=== PATIENT | male | born 1985 | race African-American/Black ===

== ENCOUNTER 2017-03-01 14:04 | Emergency (ER) | payer OTHER ==
[~2017-03-01] VITALS: Ht 182.9 cm; Wt 95.5 kg
[2017-03-01 15:32] VITALS: BP 127/71
== END 2017-03-01 15:39 | disposition home or self-care (01) ==
LOC: ED 14:04
DX: K04.7 Periapical abscess without sinus (principal)

== ENCOUNTER → 2020-04-08 | Outpatient (CLI) | payer OTHER ==
[2020-04-08 11:28] LABS: BASOPHIL % 0.4 % (0-2); PLATELET COUNT 256 x10^3mcL (130-400); RED CELL DISTRIBUTION WIDTH 13.7 % (11.5-14.5)
[2020-04-08 11:47] LABS: ALBUMIN 3.9 g/dL (3.4-5.0); ALKALINE PHOSPHATASE 71 U/L (46-116); ALT/SGPT 28 U/L (16-63); AST/SGOT 22 U/L (15-37); BILIRUBIN TOTAL 0.5 mg/dL (0.20-1.00); CALCIUM 8.7 mg/dL (8.5-10.1); CARBON DIOXIDE 29.9 mmol/L (21-32); CHLORIDE SERUM 103 mmol/L (98-107); CHOLESTEROL 195 mg/dL (<200); CHOLESTEROL/HDL RATIO 3.8; CREATININE SERUM 1.1 mg/dL (0.7-1.3); FREE T4 0.92 ng/dL (0.76-1.46); GFR1 > 60 mL/min; GLUCOSE SERUM 99 mg/dL (74-106); HDL CHOLESTEROL 51 mg/dL (40-60); POTASSIUM SERUM 3.8 mmol/L (3.5-5.1); SODIUM SERUM 140 mmol/L (136-145); TOTAL PROTEIN, SERUM 7.5 g/dL (6.4-8.2); TRIGLYCERIDES 117 mg/dL (<150)
== END | disposition home or self-care (01) ==
LOC: LB 10:45
PROVIDERS: ATTEND Family Medicine
DX: Z00.00 Encounter for general adult medical examination without abnormal findings (principal); M25.561 Pain in right knee
CPT/HCPCS: 84439